=== PATIENT | male | born 1945 ===

== ENCOUNTER 2023-12-24 11:26 | Outpatient (CLI) | payer OTHER, SELFPAY ==
--- NOTE | 2023-12-24 11:29 | USCV_ITS ---
Nicola Kay Age: 78 Gender: M : 1945 Exam Date: 12/24/2023 11:39 Ordering Phys: Carla Horne MD Technologist: [place] [facility] [place]: murmur BP: 140 / 82 HR: 54 Rhythm: Sinus Technical Quality: Adequate MEASUREMENTS (Male / Female) Normal Values 2D ECHO LVOT Diameter 2.2 cm LV Ejection Fraction MOD 4C 69.1 % LV Ejection Fraction MOD 2C 70.4 % LV Ejection Fraction 2C AL 71.2 % LA Diameter 3.9 cm RA Systolic Volume 4C AL 50.6 ml RA Systolic Volume 4C MOD 48.6 ml LA Sys Volume AL 62.5 cm cubed LA Sys Volume Index AL 33.6 cm cubed/m squared Aorta at Sinotubular Diameter 3.2 cm IVC Diameter 1.9 cm M-MODE LA Ao Ratio MM 1.3 AV Cusp Separation MM 1.9 cm DOPPLER AV Peak Velocity 195.0 cm/s LVOT Peak Velocity 121.0 cm/s AV Area Cont Eq vti 3.0 cm squared AV Area Cont Eq pk 2.4 cm squared MV Peak Velocity 86.0 cm/s MV Area PHT 1.7 cm squared TR Peak Velocity 176.0 cm/s TR Peak Gradient 12.4 mmHg Right Atrial Pressure 3.0 mmHg Pulmonary Artery Systolic Pressu 15.4 mmHg PV Peak Velocity 128.0 cm/s FINDINGS Left Ventricle Normal LV size ejection fraction of 69%.no regional wall motion abnormalities.mild left ventricular hypertrophy. Grade I/IV diastolic dysfunction (abnormal relaxation filling pattern), normal to mildly elevated filling pressures. Right Ventricle The right ventricle is normal in size and function. 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 2.4 x 1.2 cm in size. The atrium is upper limit of normal size Mitral Valve Mild mitral annular calcification Aortic Valve Aortic valve sclerosis. Tricuspid Valve Trace tricuspid valve regurgitation. Pulmonic Valve Mild pulmonary valve regurgitation. Pericardium Normal pericardium without effusion. Aorta Normal ascending aorta dimension. IVC Normal inferior vena cava. CONCLUSIONS Normal LV size ejection fraction of 69%.no regional wall motion abnormalities.mild left ventricular hypertrophy. Grade I/IV diastolic dysfunction (abnormal relaxation filling pattern), normal to mildly elevated filling pressures. Both atria are upper limit of normal in size. 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 2.4 x 1.2 cm in size. Mild mitral annular calcification. Features of aortic valve sclerosis Trace tricuspid valve regurgitation. Mild pulmonary valve regurgitation. There is no pericardial effusion. There are no intracardiac masses. Compared to the study from 12/08, there may not be a significant change Dr Bridger Lewis MD [facility] (Electronically Signed) Final Date: 27 December 2023 08:33 S
== END 2023-12-24 11:27 | disposition home or self-care (01) ==
LOC: RAD 11:27
PROVIDERS: Family Provider Emergency Medicine Emergency Medical Services; PCP Family Medicine; Visit Provider Family Medicine
DX: I50.30 Unspecified diastolic (congestive) heart failure (principal); Q21.10 Atrial septal defect, unspecified; I70.0 Atherosclerosis of aorta; R01.1 Cardiac murmur, unspecified
CPT/HCPCS: 93306